=== PATIENT | male | born 1975 | race Caucasian/White ===

== ENCOUNTER 2016-09-28 20:51 | Inpatient (IN) | payer OTHER ==
[2016-09-28] MEDS ORDERED: Aspirin 325 mg EC Tablets PO STA (21:45)
--- NOTE | 2016-09-28 21:58 | C.PDOC ---
History Of Present Illness 40 y/o male, with PMHx that includes HTN, hyperlipidemia, DM, and gastritis, who is currently not taking any medications, presents to ED with c/o chest pain for 3 days. Patient states the pain starts in the middle of his chest and radiates to the left arm, left jaw, and down to his left ankle. Patient states pain comes and goes randomly, with no exacerbating or modifying effects of note. He describes the pain as 8-9/10 at its worst and reports it is present now. Patient states he has not tried any any medications for the pain. Patient also c/o left sided abdominal pain, palpitations, and dizziness. He denies headache, fever, chills, SOB, cough, nausea, vomiting, bowel or bladder complaints. 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 Pt notes he smokes about 1 pack per day. Reports history of TIA in 2011. Time Seen by Provider: 09/28/16 21:26 Chief Complaint (Nursing): Chest Pain History Per: Patient History/Exam Limitations: no limitations Onset/Duration Of Symptoms: Days, Intermittent Episodes Current Symptoms Are (Timing): Still Present Pain Scale Rating Of: 8 Quality: "Pain" Associated Symptoms: denies: Nausea, Dyspnea, Diaphoresis Modifying Factors: None Exacerbating Factors: None Recent travel outside of the [place]: No Additional History Per: Family () Past Medical History Reviewed: Historical Data, Nursing Documentation, Vital Signs Vital Signs: Last Vital Signs Temp 98.2 F 09/28/16 20:58 Pulse 106 H 09/28/16 20:58 Resp 20 09/28/16 20:58 BP 136/83 09/28/16 20:58 Pulse Ox 98 09/28/16 21:59 - Medical History PMH: Back Problems, Diabetes, HTN, Hypercholesterolemia, TIA Family History: States: CAD, Diabetes - Social History Hx Tobacco Use: Yes Hx Alcohol Use: No Hx Substance Use: No - Immunization History Hx Tetanus Toxoid Vaccination: Yes Hx Influenza Vaccination: No Hx Pneumococcal Vaccination: No Review Of Systems Except As Marked, All Systems Reviewed And Found Negative. Constitutional: Negative for: Fever, Chills Cardiovascular: Positive for: Chest Pain Respiratory: Negative for: Cough, Shortness of Breath Gastrointestinal: Positive for: Abdominal Pain. Negative for: Vomiting Genitourinary: Negative for: Dysuria, Hematuria Skin: Negative for: Rash Neurological: Positive for: Dizziness Physical Exam - Physical Exam Appears: Non-toxic, Other (in mild distress) Skin: Normal Color, Warm, Dry, No Rash Head: Atraumatic, Normacephalic Oral Mucosa: Moist Chest: Symmetrical Cardiovascular: Rhythm Regular (tachy) Respiratory: Normal Breath Sounds, No Rales, No Rhonchi, No Wheezing Gastrointestinal/Abdominal: Soft, No Tenderness, No Distention Back: Normal Inspection Extremity: Normal ROM, Capillary Refill (< 2 sec.) Neurological/Psych: Oriented x3, Normal Speech, Normal Cognition ED Course And Treatment - Laboratory Results Result Diagrams: 09/28/16 22:36 09/28/16 22:36 Lab Interpretation: Abnormal (Blood sugar 349) ECG: Interpreted By Me ECG Rhythm: Sinus Rhythm (with right axis) O2 Sat by Pulse Oximetry: 98 (RA) Pulse Ox Interpretation: Normal - Radiology CXR: Interpreted by Me CXR Interpretation: Yes: Other (Perihilar congestion with vascular fullness) Progress Note: EKG, CXR, bloodwork ordered. Given aspirin 325mg. Reevaluation Time: 23:27 Reassessment Condition: Unchanged (Patient extremely stress with personal issued. Still having intermittnet chest pain.) - Physician Consult Information Time Consulting Physician Contacted: 23:27 Physician Contacted: Matt Rice Outcome Of Conversation: Patient to remain in hospital for chest pain observation. Insulin and fluids given for elevated glucose. Disposition - Disposition Disposition: HOSPITALIZED Disposition Time: 23:29 Condition: STABLE - POA Present On Arrival: None - Clinical Impression Clinical Impression: Chest pain, Uncontrolled diabetes mellitus - Scribe Statement The provider has reviewed the documentation as recorded by the Brianne Van Provider Scribe Attestation: All medical record entries made by the Brianne were at my direction and personally dictated by me. I have reviewed the chart and agree that the record accurately reflects my personal performance of the history, physical exam, medical decision making, and the department course for this patient. I have also personally directed, reviewed, and agree with the discharge instructions and disposition.
[2016-09-28] MEDS ORDERED: Aspirin 325 mg EC Tablets PO ONE (22:22)
[2016-09-28 22:40] LABS: BASO % 0.4 % (0.0-2.0); EOS # 0.2 K/uL (0.0-0.7); EOS % 1.4 % (0.0-4.0); HEMATOCRIT 47.4 % (35.0-51.0); LYMPH # 3.7 K/uL (1.0-4.3); LYMPH % 30.3 % (20.0-40.0); MEAN CELL VOLUME 88.4 fL (80.0-94.0); MEAN CORPUSCULAR HEMOGLOBIN 29.4 pg (27.0-31.0); MEAN CORPUSCULAR HGB CONC 33.3 g/dL (33.0-37.0); MEAN PLATELET VOLUME 9.7 fL (7.2-11.7); MONO # 0.6 K/uL (0.0-0.8); MONO % 5.2 % (0.0-10.0); RED CELL DISTRIBUTION WIDTH 13.6 % (11.5-14.5); WHITE BLOOD COUNT 12.4 K/uL (4.8-10.8)
[2016-09-28 23:03] LABS: CHLORIDE 97 mmol/L (98-107); POTASSIUM 3.7 mmol/L (3.6-5.2); SODIUM 136 mmol/L (132-148)
[2016-09-28 23:05] LABS: AST/SGOT 22 U/L (17-59); BILIRUBIN,TOTAL 0.2 mg/dL (0.2-1.3); CARBON DIOXIDE 25 mmol/L (22-30); GFR AFRICAN-AMERICAN > 60
[2016-09-28 23:06] LABS: ALB/GLOB RATIO 1.6 (1.0-2.1); ALKALINE PHOSPHATASE 76 U/L (38-126); ALT/SGPT 33 U/L (21-72); BLOOD UREA NITROGEN 16 mg/dL (9-20); CALCIUM 8.6 mg/dl (8.6-10.4); GLUCOSE,RANDOM 349 mg/dL (75-110); TOTAL PROTEIN 6.8 g/dL (6.3-8.3)
[2016-09-28] MEDS ORDERED: (Novolin R) Insulin Human Regular 100 units/ml vial ONE (23:29)
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
[2016-09-29 05:09] LABS: CHOLESTEROL 174 mg/dL (0-199)
--- NOTE | 2016-09-29 07:38 | RAD ---
HISTORY: chest pain COMPARISON: Chest x-ray portion of obstructive series performed 01/27/13 TECHNIQUE: Chest, one view. FINDINGS: Examination limited by habitus. LUNGS: Mild interstitial prominence may reflect infection or edema versus vascular crowding due to hypoinflation. Please note that chest x-ray has limited sensitivity for the detection of pulmonary masses. PLEURA: No significant pleural effusion identified. No definite pneumothorax . CARDIOVASCULAR: Heart size appears within normal limits. OSSEOUS STRUCTURES: No acute osseous abnormality identified. VISUALIZED UPPER ABDOMEN: Unremarkable. OTHER FINDINGS: None. IMPRESSION: Mild interstitial prominence may reflect infection or edema versus vascular crowding due to hypoinflation. Correlate clinically.
[2016-09-29] MEDS: (Novolin R) Insulin Human Regular 100 units/ml vial SC SCH ×4 (08:51→21:50)
[2016-09-29] MEDS: Tramadol 25 mg PO SCH ×3 (10:31→21:47)
[2016-09-29] MEDS: Pantoprazole 40 mg EC Tab PO SCH (10:31)
[2016-09-29] MEDS: (Novolog) Insulin Aspart, Recombinant 100 u/ml 10 ml vial SC SCH ×2 (13:00→17:28)
[2016-09-29 16:10] VITALS: RESP 20
--- NOTE | 2016-09-29 16:22 | CP.PCM.PN ---
<Ramonita Syed - Last Filed: 09/29/16 16:15> Subjective - Date & Time of Evaluation Date of Evaluation: 09/29/16 Time of Evaluation: 16:15 - Subjective Subjective: Patient seen and examined at bedside. Patient states his dizziness and chest pain has resolved. He continues to complain of tight feeling in his throat but denies dysphagia. Patient states he wants to quit smoking and requesting nicotine patch. He also realizes he needs to be more compliant with medical follow-up in order to control his diabetes. Patient denies shortness of breath, abdominal pain, nausea, vomiting, diarrhea, constipation, and dysuria. Objective - Vital Signs/Intake and Output Vital Signs (last 24 hours): Temp Pulse Resp BP Pulse Ox 97.9 F 83 20 136/88 96 09/29/16 16:07 09/29/16 16:07 09/29/16 16:07 09/29/16 16:07 09/29/16 16:07 - Medications Medications: Current Medications Aspirin (Ecotrin) 81 mg PO DAILY [facility] Last Admin: 09/29/16 10:31 Dose: 81 mg Insulin Aspart (Novolog) 3 unit SC TIDAC [facility] Last Admin: 09/29/16 13:00 Dose: 3 unit Insulin Human Regular (Novolin R) 0 unit SC ACHS [facility] PRN Reason: Protocol Last Admin: 09/29/16 13:00 Dose: 1 unit Lisinopril (Zestril) 5 mg PO DAILY [facility] Last Admin: 09/29/16 10:31 Dose: 5 mg Nicotine (Nicoderm Cq) 1 patch TD DAILY [facility] Last Admin: 09/29/16 10:32 Dose: Not Given Nicotine (Nicoderm Cq) 1 patch TD DAILY [facility] Last Admin: 09/29/16 10:30 Dose: 1 patch Pantoprazole Sodium (Protonix Ec Tab) 40 mg PO DAILY [facility] Last Admin: 09/29/16 10:31 Dose: 40 mg Rosuvastatin Calcium (Crestor) 2.5 mg PO HS [facility] Tramadol HCl (Ultram) 25 mg PO TID [facility] Last Admin: 09/29/16 14:24 Dose: 25 mg - Constitutional Appears: Non-toxic, No Acute Distress - Head Exam Head Exam: ATRAUMATIC, NORMAL INSPECTION, NORMOCEPHALIC - Eye Exam Eye Exam: EOMI, Normal appearance, PERRL - ENT Exam ENT Exam: Mucous Membranes Moist - Neck Exam Neck Exam: Full ROM, Normal Inspection - Respiratory Exam Respiratory Exam: Clear to Ausculation Bilateral, NORMAL BREATHING PATTERN. absent: Rales, Rhonchi, Wheezes - Cardiovascular Exam Cardiovascular Exam: +S1. absent: Diastolic murmur, Gallop, Murmur - GI/Abdominal Exam GI & Abdominal Exam: Soft, Normal Bowel Sounds. absent: Firm, Tenderness - Extremities Exam Extremities Exam: Normal Inspection. absent: Pedal Edema, Tenderness - Neurological Exam Neurological Exam: Alert, Awake, Oriented x3 Neuro motor strength exam: Left Upper Extremity: 5, Right Upper Extremity: 5, Left Lower Extremity: 5, Right Lower Extremity: 5 - Psychiatric Exam Psychiatric exam: Normal Affect, Normal Mood - Skin Skin Exam: Intact, Normal Color, Warm Assessment and Plan - Assessment and Plan (Free Text) Assessment: (1) Chest pain Assessment and Plan: rule out ACS MIKEY panel negative: < 0.0120 x3 EKG: NSR rate 81, rightward axis Lipid panel: triglycerides 114, cholesterol 174, LDL 131, HDL 31 Hemoglobin A1c 11.2 - uncontrolled diabetes mellitus follow-up echocardiogram Continue Aspirin 81 mg po daily [place], Dr. Woods, consulted. Help appreciated. Status: Acute (2) Low back pain Assessment and Plan: patient counseled to stop NSAID use Continue tramadol 25mg TID Status: Chronic (3) HLD (hyperlipidemia) Assessment and Plan: Continue crestor 2.5mg Lipid panel: triglycerides 114, cholesterol 174, LDL 131, HDL 31 Status: Acute (4) HTN (hypertension) Assessment and Plan: Continue lisinopril 5mg Status: Chronic (5) Gastritis Assessment and Plan: patient counseled to stop NSAID use Continue protonix 40mg po daily Status: Acute (6) Uncontrolled Diabetes Mellitus Type II Assessment and Plan: hemoglobin a1c 11.2 Started Novolog 3 unit SC TIDAC ISS and accuchecks ACHS Status: Chronic (7) Prophylactic measure Assessment and Plan: protonix 40mg SCDs nicotine patch Heart Healthy Diet Status: Acute <Rigo Mendoza - Last Filed: 11/02/16 14:55> Objective - Vital Signs/Intake and Output Vital Signs (last 24 hours): Temp Pulse Resp BP Pulse Ox 98.1 F 78 20 107/69 96 09/30/16 07:00 09/30/16 13:00 09/30/16 07:00 09/30/16 07:00 09/30/16 07:00 - Labs Labs: 09/30/16 06:21 09/30/16 06:21 Attending/Attestation - Attestation I have personally seen and examined this patient.: Yes I have fully participated in the care of the patient.: Yes I have reviewed all pertinent clinical information, including history, physical exam and plan: Yes Notes (Text): Patient seen and examined with the resident. Agree with the resident's evaluation, assessment and plan. Chest pain Assessment and Plan: rule out ACS MIKEY panel negative: < 0.0120 x3 EKG: NSR rate 81, rightward axis Lipid panel: triglycerides 114, cholesterol 174, LDL 131, HDL 31 Hemoglobin A1c 11.2 - uncontrolled diabetes mellitus follow-up echocardiogram Continue Aspirin 81 mg po daily [place] Sinker, Dr. Woods, consulted. Help appreciated. Status: Acute Low back pain Assessment and Plan: patient counseled to stop NSAID use Continue tramadol 25mg TID Status: Chronic
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
--- NOTE | 2016-09-29 17:08 | CARD ---
APPROVED REPORT EXAM: Two-dimensional and M-mode echocardiogram with Doppler and color Doppler. Other Information Quality : AverageRhythm : NSR INDICATION CVA/TIA Dyspnea Chest Pain Congestive Heart Failure RISK FACTORS Hypertension Hyperlipidemia Diabetes Smoking M-Mode DIMENSIONS RVDd1.77 (2.1-3.2cm)Left Atrium (MM)3.54 (2.5-4.0cm) IVSd1.18 (0.7-1.1cm)Aortic Root2.84 (2.2-3.7cm) LVDd5.24 (4.0-5.6cm)Aortic Cusp Exc.1.99 (1.5-2.0cm) PWd0.96 (0.7-1.1cm)FS (%) 42 % LVDs3.06 (2.0-3.8cm)LVEF (%)72 (>50%) Mitral Valve MV E Ohvipnzj70.2cm/sMV A Snlwtlhs97.9cm/sE/A ratio0.8 TDI E/Lateral E'0.0E/Medial E'0.0 Tricuspid Valve TR Peak [id number]/sTR Peak [id number] LEFT VENTRICLE The left ventricle is normal size. There is normal left ventricular wall thickness. The left ventricular systolic function is normal. The left ventricular ejection fraction is within the normal range. There is normal LV segmental wall motion. Transmitral Doppler flow pattern is Grade I-abnormal relaxation pattern. Normal left atrial pressure. RIGHT VENTRICLE The right ventricle is normal size. There is normal right ventricular wall thickness. The right ventricular systolic function is normal. ATRIA The left atrium size is normal. The right atrium size is normal. AORTIC VALVE The aortic valve is normal in structure. No aortic regurgitation is present. MITRAL VALVE The mitral valve is normal in structure. There is no mitral valve regurgitation noted. TRICUSPID VALVE The tricuspid valve is normal in structure. There is trace tricuspid regurgitation. PULMONIC VALVE The pulmonary valve is normal in structure. There is trace pulmonic valvular regurgitation. GREAT VESSELS The aortic root is normal in size. The IVC is normal in size and collapses >50% with inspiration. PERICARDIAL EFFUSION There is no pericardial effusion. <Conclusion> The left ventricular systolic function is normal. There is normal LV segmental wall motion. Transmitral Doppler flow pattern is Grade I-abnormal relaxation pattern. Normal left atrial pressure. The right ventricular systolic function is normal. No valvular abnormality. No pericardial effusion.
[2016-09-29] MEDS ORDERED: Rosuvastatin Calcium 2.5 mg Tab PO SCH (22:00)
[2016-09-30 06:30] LABS: BASO % 0.4 % (0.0-2.0); EOS # 0.1 K/uL (0.0-0.7); EOS % 1.2 % (0.0-4.0); HEMATOCRIT 46.8 % (35.0-51.0); LYMPH % 29.2 % (20.0-40.0); MEAN CELL VOLUME 88.1 fL (80.0-94.0); MEAN CORPUSCULAR HEMOGLOBIN 29.6 pg (27.0-31.0); MEAN CORPUSCULAR HGB CONC 33.6 g/dL (33.0-37.0); MEAN PLATELET VOLUME 8.9 fL (7.2-11.7); MONO # 0.6 K/uL (0.0-0.8); RED CELL DISTRIBUTION WIDTH 13.6 % (11.5-14.5); WHITE BLOOD COUNT 10.2 K/uL (4.8-10.8)
[2016-09-30 06:45] LABS: CHLORIDE 99 mmol/L (98-107)
[2016-09-30 06:46] LABS: POTASSIUM 4.1 mmol/L (3.6-5.2); SODIUM 136 mmol/L (132-148)
[2016-09-30 06:48] LABS: ALB/GLOB RATIO 1.3 (1.0-2.1); ALKALINE PHOSPHATASE 62 U/L (38-126); AST/SGOT 17 U/L (17-59); BILIRUBIN,TOTAL 0.6 mg/dL (0.2-1.3); BLOOD UREA NITROGEN 15 mg/dL (9-20); CARBON DIOXIDE 28 mmol/L (22-30); GFR AFRICAN-AMERICAN > 60; TOTAL PROTEIN 6.4 g/dL (6.3-8.3)
[2016-09-30 06:49] LABS: ALT/SGPT 37 U/L (21-72); GLUCOSE,RANDOM 175 mg/dL (75-110); MAGNESIUM 2.1 mg/dL (1.6-2.3)
[2016-09-30] MEDS: (Novolog) Insulin Aspart, Recombinant 100 u/ml 10 ml vial SC SCH ×2 (07:45→12:00)
[2016-09-30] MEDS: (Novolin R) Insulin Human Regular 100 units/ml vial SC SCH ×2 (07:46→12:00)
[2016-09-30 07:58] VITALS: BP 107/69; TEMP 98.1; O2SAT 96
[2016-09-30] MEDS: Tramadol 25 mg PO SCH ×2 (09:19→13:18)
[2016-09-30] MEDS: Pantoprazole 40 mg EC Tab PO SCH (09:20)
[2016-09-30] MEDS ORDERED: Naproxen 550 mg Tab PO ONE (10:30)
--- NOTE | 2016-09-30 11:48 | CARD ---
APPROVED REPORT EKG Measurement Heart [id number] <Conclusion> Normal sinus rhythm Rightward axis Borderline ECG
[2016-09-30 13:33] VITALS: PULSE 78
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
--- NOTE | 2016-10-10 23:16 | CARD ---
APPROVED REPORT EKG Measurement Heart [id number] <Conclusion> Normal sinus rhythm Rightward axis Borderline ECG
== END 2016-09-30 14:18 | disposition home or self-care (01) | DRG 143 ==
LOC: C.ER 20:51 → C.9E 23:48 → C.9I 09-29 04:15 → OBSVTOIN 09-29 09:25 → C.6T 09-29 15:37
PROVIDERS: ADMIT Hospitalist; ATTEND Hospitalist
DX: R07.89 Other chest pain (principal); E11.65 Type 2 diabetes mellitus with hyperglycemia; I10 Essential (primary) hypertension; E78.5 Hyperlipidemia, unspecified; K29.70 Gastritis, unspecified, without bleeding; M54.5 Low back pain; F17.210 Nicotine dependence, cigarettes, uncomplicated; E78.00 Pure hypercholesterolemia, unspecified; R42 Dizziness and giddiness; Z86.73 Personal history of transient ischemic attack (TIA), and cerebral infarction without residual deficits; Z79.4 Long term (current) use of insulin; Z98.1 Arthrodesis status; Z79.82 Long term (current) use of aspirin

== ENCOUNTER 2017-06-16 02:26 | Emergency (ER) | payer MEDICAID ==
[2017-06-16 02:49] VITALS: RESP 18
[2017-06-16] MEDS ORDERED: Albuterol-Ipratrop 3 mg / 0.5 (3 ml) UD INH STA ×2 (02:51→03:51)
[2017-06-16] MEDS ORDERED: Albuterol-Ipratrop 3 mg / 0.5 (3 ml) UD ONE ×3 (02:56→03:58)
--- NOTE | 2017-06-16 02:56 | C.PDOC ---
History Of Present Illness <Stanley Ram - Last Filed: 06/16/17 03:57> <Violeta Peters - Last Filed: 06/19/17 09:34> 41 year old male presents to the ER with a complaint of a worsening cough and post tussive chest pain for the past 2 days. Denies fever, chills, nausea, vomiting, or diarrhea. Patient has a Hx of diabetes and HTN but no Hx asthma or COPD; surgical Hx includes lower lumbar fusion. He smokes a pack a day for the past 30 years. ( Stanley Ram) History Per: Patient History/Exam Limitations: no limitations Onset/Duration Of Symptoms: Days Current Symptoms Are (Timing): Still Present Location Of Pain: Other (Chest, post tussive) Sick Contacts (Context): None Associated Symptoms: Cough. denies: Fever, Chills Ear Symptoms: Bilateral: None Recent travel outside of the [place]: No <Stanley Ram - Last Filed: 06/16/17 03:57> <Violeta Peters - Last Filed: 06/19/17 09:34> Time Seen by Provider: 06/16/17 02:29 Chief Complaint (Nursing): Chest Pain Past Medical History Reviewed: Historical Data, Nursing Documentation, Vital Signs - Medical History PMH: Back Problems, Diabetes, Gastritis, HTN, Hypercholesterolemia, TIA Family History: States: CAD, Diabetes - Social History Hx Tobacco Use: Yes Hx Alcohol Use: No Hx Substance Use: No - Immunization History Hx Tetanus Toxoid Vaccination: Yes Hx Influenza Vaccination: No Hx Pneumococcal Vaccination: No <Stanley Ram - Last Filed: 06/16/17 03:57> Vital Signs: Last Vital Signs Temp 98.6 F 06/16/17 04:25 Pulse 92 H 06/16/17 04:25 Resp 18 06/16/17 04:25 BP 136/90 06/16/17 04:25 Pulse Ox 98 06/16/17 04:25 Review Of Systems Constitutional: Negative for: Fever, Chills Cardiovascular: Negative for: Palpitations Respiratory: Positive for: Cough. Negative for: Shortness of Breath Gastrointestinal: Negative for: Nausea, Vomiting, Diarrhea Musculoskeletal: Positive for: Other (Chest wall pain, post tussive) <Stanley Ram N - Last Filed: 06/16/17 03:57> Physical Exam - Physical Exam Appears: Non-toxic, No Acute Distress Skin: Normal Color, Warm, Dry Head: Atraumatic, Normacephalic Eye(s): bilateral: Normal Inspection Nose: Normal Oral Mucosa: Moist Throat: Erythema, No Exudate Neck: Normal, Supple Chest: Symmetrical, No Tenderness Cardiovascular: Rhythm Regular Respiratory: Normal Breath Sounds, No Rales, No Rhonchi, No Wheezing Gastrointestinal/Abdominal: Soft, No Tenderness Back: No CVA Tenderness Neurological/Psych: Oriented x3, Normal Speech, Other (No focal deficits) <Stanley Ram - Last Filed: 06/16/17 03:57> ED Course And Treatment - Laboratory Results Result Diagrams: 06/16/17 03:06 06/16/17 03:06 ECG: Interpreted By Me, Viewed By Me ECG Rhythm: Sinus Rhythm ECG Interpretation: Normal Interpretation Of ECG: TN:164 QRS:82 QT:352 QTC:444; no ischemic changes, right axis deviation. Rate From EC O2 Sat by Pulse Oximetry: 96 (Room air) Pulse Ox Interpretation: Normal - Radiology CXR: Interpreted by Me, Viewed By Me CXR Interpretation: Yes: No Acute Disease. No: Infiltrates, Cardiomegaly, Pnemothorax, Other (Effusions) <Stanley Ram - Last Filed: 06/16/17 03:57> - Laboratory Results Result Diagrams: 06/16/17 03:06 06/16/17 03:06 <Violeta Peters - Last Filed: 06/19/17 09:34> Medical Decision Making <Stanley Ram - Last Filed: 06/16/17 03:57> <Violeta Peters - Last Filed: 06/19/17 09:34> Medical Decision Making: Plan: * CMP * CBC * CXR * Flu swab * Albuterol nebulizer (Stanley Ram) Disposition <Stanley Ram - Last Filed: 06/16/17 03:57> - Disposition Disposition Time: 09:33 <Violeta Peters - Last Filed: 06/19/17 09:34> - Disposition Referrals: [facility] [Outside] [facility]Outside[facility]] [facility] [place] [Outside] Disposition: HOME/ ROUTINE Condition: STABLE Additional Instructions: return if symptoms worsen Prescriptions: Albuterol HFA [Ventolin HFA 90 mcg/actuation (8 g)] 2 puff IH [id number] #1 puff levoFLOXacin [Levaquin] 750 mg PO DAILY 7 Days tab predniSONE [Prednisone] 60 mg PO DAILY 5 Days #15 tab Instructions: Upper Respiratory Infection (ED) Forms: [employer] (Luxembourgish) - Clinical Impression Clinical Impression: Pneumonia - Scribe Statement The provider has reviewed the documentation as recorded by the Scribe <Stanley Ram - Last Filed: 06/16/17 03:57> <Violeta Peters - Last Filed: 06/19/17 09:34> - Scribe Statement Amauri Barlow All medical record entries made by the Scribe were at my direction and personally dictated by me. I have reviewed the chart and agree that the record accurately reflects my personal performance of the history, physical exam, medical decision making, and the department course for this patient. I have also personally directed, reviewed, and agree with the discharge instructions and disposition. (Stanley Ram) Addendum <Stanley Ram - Last Filed: 06/16/17 03:57> <Violeta Peters - Last Filed: 06/19/17 09:34> Addendum: 06/19/17 09:28 Accession No. : [id number] Patient Name / ID : MENDY PALMER / [id number] Exam Date : 06/16/2017 03:02:48 ( Approved ) Study Comment : Sex / Age : M / 41Y Creator : Petey Cortes Dictator : Libia Salinas MD Doper : Planer Tailer : Libia Salinas MD Approver2 : Report Date : 06/16/2017 03:30:02 My Comment : HISTORY: COMPARISON: 09/28/2016. TECHNIQUE: Chest PA and lateral FINDINGS: LINES AND TUBES: None. LUNG AND PLEURA: There is mild pulmonary hyperinflation and peribronchial cuffing with streaky opacities in the lungs. There is an ill-defined nodular opacity in the left lateral lower lobe measuring 12 mm approximately. HEART AND MEDIASTINUM: The heart is not enlarged. The hilar and mediastinal contours are within normal limits. SKELETAL STRUCTURES: The bony structures are within normal limits for the patient's age. VISUALIZED UPPER ABDOMEN: Normal. OTHER FINDINGS: None. IMPRESSION: Findings are most compatible with reactive small airway disease. Apparent ill- defined nodular opacity in the left lateral lower lobe may represent subsegmental atelectasis or developing pneumonia however parenchymal nodule cannot be entirely excluded. Follow-up after medical management is recommended to ensure complete resolution. CXR read reviewed. Pt called, no answer. SPoke to pharmacist who notes he has a different number and will also call him. Levaquin prescribed. Curb 65 negative. Kidney function WNL CAse discussed with Dr Covarrubias, agreed upon treatment. 06/19/17 09:31 (Violeta Peters)
[2017-06-16 03:09] LABS: BASO # 0.1 K/uL (0.0-0.2); BASO % 0.7 % (0.0-2.0); EOS # 0.1 K/uL (0.0-0.7); EOS % 1.1 % (0.0-4.0); HEMOGLOBIN 15.7 g/dL (12.0-18.0); LYMPH % 32.7 % (20.0-40.0); MEAN CELL VOLUME 87.9 fL (80.0-94.0); MEAN CORPUSCULAR HEMOGLOBIN 30.3 pg (27.0-31.0); MEAN CORPUSCULAR HGB CONC 34.5 g/dL (33.0-37.0); MEAN PLATELET VOLUME 9.1 fL (7.2-11.7); MONO # 0.7 K/uL (0.0-0.8); MONO % 5.7 % (0.0-10.0); NEUT # 7.4 K/uL (1.8-7.0); NEUT % 59.8 % (50.0-75.0); NRBC % 0.1 % (0.0-2.0); RBC 5.17 Mil/uL (4.40-5.90); WHITE BLOOD COUNT 12.3 K/uL (4.8-10.8)
[2017-06-16 03:20] LABS: ALB/GLOB RATIO 1.3 (1.0-2.1); ALBUMIN 3.8 g/dL (3.5-5.0); ALT/SGPT 39 U/L (21-72); AST/SGOT 18 U/L (17-59); BLOOD UREA NITROGEN 16 mg/dL (9-20); CALCIUM 8.5 mg/dl (8.6-10.4); GFR AFRICAN-AMERICAN > 60; GFR NON-AFRICAN AMERICAN > 60
[2017-06-16 04:26] VITALS: BP 136/90; PULSE 92; TEMP 98.6; O2SAT 98
--- NOTE | 2017-06-16 08:42 | RAD ---
HISTORY: COMPARISON: 09/28/2016. TECHNIQUE: Chest PA and lateral FINDINGS: LINES AND TUBES: None. LUNG AND PLEURA: There is mild pulmonary hyperinflation and peribronchial cuffing with streaky opacities in the lungs. There is an ill-defined nodular opacity in the left lateral lower lobe measuring 12 mm approximately. HEART AND MEDIASTINUM: The heart is not enlarged. The hilar and mediastinal contours are within normal limits. SKELETAL STRUCTURES: The bony structures are within normal limits for the patient's age. VISUALIZED UPPER ABDOMEN: Normal. OTHER FINDINGS: None. IMPRESSION: Findings are most compatible with reactive small airway disease. Apparent ill-defined nodular opacity in the left lateral lower lobe may represent subsegmental atelectasis or developing pneumonia however parenchymal nodule cannot be entirely excluded. Follow-up after medical management is recommended to ensure complete resolution.
--- NOTE | 2017-06-17 14:21 | CARD ---
APPROVED REPORT EKG Measurement Heart [id number] <Conclusion> Normal sinus rhythm Rightward axis Borderline ECG
== END 2017-06-16 04:40 | disposition home or self-care (01) ==
LOC: C.ER 02:26
DX: J18.9 Pneumonia, unspecified organism (principal); F17.210 Nicotine dependence, cigarettes, uncomplicated; I10 Essential (primary) hypertension; E11.9 Type 2 diabetes mellitus without complications

== ENCOUNTER 2017-06-20 02:51 | Emergency (ER) | payer MEDICAID ==
[2017-06-20 03:14] VITALS: TEMP 97.9
[2017-06-20 04:11] VITALS: BP 117/71; PULSE 90; RESP 16; O2SAT 97
--- NOTE | 2017-06-20 05:38 | C.PDOC ---
History Of Present Illness Patient is a 41 y/o male who presents to the ED with a complaint of cough, throat pain, and congestion. Patient reports to have visited ED on 06/16/17, receiving an unremarkable XR and steroids that have not alleviated symptoms. Patient notes still not being able to breathe fully, prompting visit instead of following up with PMD. No other physical complaints at this time. Time Seen by Provider: 06/20/17 03:14 Chief Complaint (Nursing): Cough, Cold, Congestion History Per: Patient History/Exam Limitations: no limitations Onset/Duration Of Symptoms: Days (since last visit 06/16/17) Current Symptoms Are (Timing): Still Present Associated Symptoms: Sore Throat, Cough, Nasal Congestion Recent travel outside of the [place]: No Past Medical History Reviewed: Historical Data, Nursing Documentation, Vital Signs Vital Signs: Last Vital Signs Temp 97.9 F 06/20/17 04:09 Pulse 90 06/20/17 04:09 Resp 16 06/20/17 04:09 BP 117/71 06/20/17 04:09 Pulse Ox 97 07/30/17 19:09 - Medical History PMH: Back Problems, Diabetes, Gastritis, HTN, Hypercholesterolemia, TIA Denies: Chronic Kidney Disease Surgical History: No Surg Hx Family History: States: CAD, Diabetes - Social History Hx Tobacco Use: Yes Hx Alcohol Use: No Hx Substance Use: No - Immunization History Hx Tetanus Toxoid Vaccination: Yes Hx Influenza Vaccination: No Hx Pneumococcal Vaccination: No Review Of Systems ENT: Positive for: Nose Congestion, Throat Pain Respiratory: Positive for: Cough Gastrointestinal: Positive for: Constipation Physical Exam - Physical Exam Skin: Normal Color Head: Atraumatic Eye(s): bilateral: Normal Inspection Ear(s): Bilateral: Normal Nose: Normal, No Discharge, No Epistaxis Oral Mucosa: Moist, No Drooling Tongue: Normal Appearing Lips: Normal Appearing Gingiva: Normal Appearing Neck: Normal, Normal ROM, No Decreased ROM Lymphatic: Normal Exam Chest: Symmetrical Cardiovascular: Rhythm Regular Respiratory: Normal Breath Sounds, No Decreased Breath Sounds, No Stridor, No Wheezing Gastrointestinal/Abdominal: Normal Exam, Bowel Sounds, Soft, No Tenderness, No Organomegaly, No Mass Rectal: Deferred Back: Normal Inspection, No CVA Tenderness Male Genital: Normal Inspection Extremity: Normal ROM Extremity: Bilateral: Atraumatic Neurological/Psych: Oriented x3 Additional Physical Exam Comments: Refuses physical exam at this time. ED Course And Treatment O2 Sat by Pulse Oximetry: 97 Progress Note: Subsequent to refusal of physical exam, patient eloped. Medical Decision Making Medical Decision Making: Pt became very frustrated and decied he did not want to pursue further care at this time. Disposition Counseled Patient/Family Regarding: Diagnosis - Disposition Disposition: ELOPEMENT - ER ONLY Disposition Time: 19:13 Condition: GOOD Forms: [employer] (Northern Irish) - POA Present On Arrival: None - Clinical Impression Clinical Impression: Viral disease - Scribe Statement The provider has reviewed the documentation as recorded by the Scribe Tracy Monroe All medical record entries made by the Scribe were at my direction and personally dictated by me. I have reviewed the chart and agree that the record accurately reflects my personal performance of the history, physical exam, medical decision making, and the department course for this patient. I have also personally directed, reviewed, and agree with the discharge instructions and disposition.
== END 2017-06-20 04:11 | disposition left against medical advice (07) ==
LOC: C.ER 02:51
DX: B34.9 Viral infection, unspecified (principal)